=== PATIENT | male | born 1990 | race Hispanic/Latino ===

== ENCOUNTER 2025-02-14 23:16 | Emergency (ER) | payer OTHER, SELFPAY ==
[2025-02-15] MEDS ORDERED: NA CHLORIDE 0.9% 1,000 ML ONE (00:40)
[2025-02-15 00:54] LABS: Urine Microscopic Reflex YN NO UMIC
[2025-02-15 00:56] LABS: Absolute Lymphocytes (CBC) 1.2 K/uL (0.7-4.9); Hematocrit 43.9 % (39.6-49.0); Hemoglobin 15.0 g/dL (13.6-17.9); MCH 30.3 pg (27.0-35.0); MCHC 34.1 g/dL (32.0-36.0); MCV 89.1 fL (80-100); MPV 12.0 fL (7.6-11.3); Nucleated RBC Absolute Count 0.0 (0-0); Nucleated Red Blood Cells % 0.0 % (0-0); RBC Red Blood Cell Count 4.93 M/uL (4.33-5.43); White Blood Count 8.30 thou/uL (4.3-10.9)
[2025-02-15 01:13] LABS: PT Prothrombin Time 13.0 SECONDS (10-13.0); Protime INR 1.16
[2025-02-15 01:26] LABS: ALT/SGPT 23.0 U/L (16-61); AST/SGOT 17.0 U/L (15-37); Albumin 4.0 g/dL (3.4-5.0); Albumin/Globulin Ratio 0.9 (1.1-1.8); Alkaline Phosphatase 59.0 U/L (45-117); Anion Gap 8.5 mEq/L (5.0-15.0); BUN Blood Urea Nitrogen 11.0 mg/dL (7-18); Bilirubin Indirect, Calculated 0.4 mg/dL (0.2-0.8); Globulin 4.3 g/dL (2.3-3.5); Glucose Level 110.0 mg/dL (74-106); Magnesium 2.2 mg/dL (1.6-2.4); Potassium 3.5 mEq/L (3.5-5.1); Troponin High Sensitivity 3.6 pg/mL (<58.9)
[2025-02-15 01:33] LABS: METHAMPHETAM NEGATIVE (NEGATIVE); THC Cannibis NEGATIVE (NEGATIVE)
--- NOTE | 2025-02-15 03:24 | ER ---
Nurse's Notes [facility] Name: Cory Cohen Age: 35 yrs Sex: Male : 1990 Arrival Date: 02/14/2025 Time: 23:16 Bed 17 Private MD: Diagnosis: Encounter for examination and observation for other specified reasons;Acute ethmoidal sinusitis, unspecified Presentation: 02/14 23:22 Chief complaint: Parent and/or Guardian states: HAS BEEN HAVING PERIODS OF NOT KNOWING ha WHERE HE IS AT. GOT LOST MULTIPLE TIMES SINCE LAST WEEK. ACTING CONFUSED. WAS RECENTLY DIAGNOSED WITH LEUKEMIA. 23:22 Coronavirus screen: Client denies travel out of the [place] in the last 14 days. Ebola ha1 Screen: No symptoms or risks identified at this time. Initial Sepsis Screen: Does the patient meet any 2 criteria? No. Patient's initial sepsis screen is negative. Does the patient have a suspected source of infection? No. Patient's initial sepsis screen is negative. Risk Assessment: Do you want to hurt yourself or someone else? Patient reports no desire to harm self or others. Onset of symptoms was February 14, 2025. 23:22 Method Of Arrival: Ambulatory ha1 23:22 Acuity: PATRICK 2 ha1 Triage Assessment: 23:35 General: Appears ill, unkempt, Behavior is calm. Pain: Denies pain. Neuro: Level of ha1 Consciousness is awake, Oriented to person, place, time, situation. Cardiovascular: Capillary refill < 3 seconds Patient's skin is warm and dry. Respiratory: Airway is patent Respiratory effort is even, unlabored, Respiratory pattern is regular, symmetrical. Historical: - Allergies: 23:46 Bactrim; ha1 - PMHx: 23:46 Hypertension; Leukemia; ha1 - Immunization history:: Adult Immunizations up to date. - Infectious Disease History:: Denies. - Social history:: Smoking status: Patient denies any tobacco usage or history of. Screenin/05 00:57 [facility] ED Fall Risk Assessment (Adult) History of falling in the last 3 months, rg5 including since admission No falls in past 3 months (0 pts) Confusion or Disorientation Yes (5 pts) Intoxicated or Sedated Impaired Gait No (0 pts) Mobility Assist Device Used No (0 pt) Altered Elimination No (0 pt) Score/Fall Risk Level 0 - 2 = Low Risk Oriented to surroundings, Maintained a safe environment, Provided non-skid footwear. Abuse screen: Denies threats or abuse. Nutritional screening: No deficits noted. Tuberculosis screening: No symptoms or risk factors identified. Assessment: 00:57 General: Appears in no apparent distress. comfortable, Behavior is calm, cooperative, rg5 appropriate for age. Pain: Denies pain. Neuro: Level of Consciousness is awake, alert, obeys commands. Cardiovascular: Denies chest pain. Respiratory: Airway is patent Respiratory effort is even, unlabored. GI: Abdomen is round non-distended. : No signs and/or symptoms were reported regarding the genitourinary system. EENT: No signs and/or symptoms were reported regarding the EENT system. Derm: Skin is intact, Skin is dry, Skin is normal. Musculoskeletal: Circulation, motion, and sensation intact. Range of motion: intact in all extremities. 01:37 Reassessment: No changes from previously documented assessment. Patient and/or family rg5 updated on plan of care and expected duration. Pain level reassessed. Patient is alert, oriented x 3, equal unlabored respirations, skin warm/dry/pink. 03:39 Reassessment: Patient and/or family updated on plan of care and expected duration. Pain ha1 level reassessed. Vital Signs: 02/14 23:22 BP 131 / 91; Pulse 102; Resp 19 S; Temp 98.9; Pulse Ox 98% on R/A; Weight 83.91 kg; ha1 Height 5 ft. 9 in. ; 02/15 00:56 BP 141 / 97; Pulse 100; Resp 18; Pulse Ox 97% ; Pain 0/10; rg5 01:36 BP 130 / 92; Pulse 88; Resp 18; Pulse Ox 97% ; Pain 0/10; rg5 03:27 BP 119 / 78; Pulse 82; Resp 18; Pulse Ox 97% ; oe 02/14 23:22 Body Mass Index 27.32 (83.91 kg, 175.26 cm) ha1 02/15 00:56 Pain Scale: Adult rg5 01:36 Pain Scale: Adult rg5 ED Course: 02/14 23:19 Patient arrived in ED. im 23:22 Dylan Kay PA-C is PHCP. cp 23:22 Dutch Novoa MD is Attending Physician. cp 23:46 Triage completed. ha1 02/15 00:44 Byron Power, RN is Primary Nurse. rg5 00:54 CT Head Brain wo Cont In Process Unspecified. EDMS 00:57 Patient has correct armband on for positive identification. Bed in low position. Call rg5 light in reach. Side rails up X 1. Adult w/ patient. 00:57 No provider procedures requiring assistance completed. Inserted saline lock: 20 gauge rg5 in right antecubital area, using aseptic technique. Blood collected. Flushed with 10 mL NS. Patient maintains SpO2 saturation greater than 95% on room air. 00:59 XRAY Chest (1 view) In Process Unspecified. EDMS 03:22 Adrian Rodriguez MD is Referral Physician. cp 03:40 Provided Education on: follow ups . ha1 03:40 IV discontinued, intact, bleeding controlled, No redness/swelling at site. Pressure ha1 dressing applied. Administered Medications: 00:51 Drug: NS 0.9% IV 1000 ml IV at 1000 ml once; to be given as a bolus over 60 minutes rg5 Route: IV; Rate: 1000 ml; Site: right antecubital; 03:41 Follow up: Response: No adverse reaction; IV Status: Completed infusion ha1 Medication: 00:57 VIS not applicable for this client. rg5 Outcome: 03:23 Discharge ordered by . cp 03:40 Discharged to home ambulatory, with family, ha1 03:40 Condition: stable 03:40 Discharge instructions given to patient, Instructed on discharge instructions, follow up and referral plans. medication usage, Demonstrated understanding of instructions, follow-up care, medications, Prescriptions given X 1, 03:41 Patient left the ED. ha1 Signatures: Dispatcher [employer] EDVT Dylan Kay PA-C PA-C cp Espinosa, Orlando oe Ayala, Heidy, RN RN ha1 Moni Romero Rommel, RN RN rg5
--- NOTE | 2025-02-15 03:24 | EDPHYS ---
Physician Documentation [facility] Name: Cory Cohen Age: 35 yrs Sex: Male : 1990 Arrival Date: 02/14/2025 Time: 23:16 Bed 17 Private MD: ED Physician Dutch Novoa HPI: 02/15 00:30 This 35 yrs old Male presents to ER via Ambulatory with complaints of Mental cp health eval. 00:30 The patient presents to the emergency department with depression, over health due to cp recent diagnosis of Leukemia. 00:30 Onset: The symptoms/episode began/occurred gradually. Past psychiatric history: Prior cp diagnosis: no previous psychiatric diagnosis known. Parents concerned about patient recent lack of interest and wondering off. Historical: - Allergies: 02/14 23:46 Bactrim; ha1 - PMHx: 23:46 Hypertension; Leukemia; ha1 - Immunization history:: Adult Immunizations up to date. - Infectious Disease History:: Denies. - Social history:: Smoking status: Patient denies any tobacco usage or history of. ROS: 02/15 00:33 Constitutional: Negative for body aches, chills, fever, poor PO intake, cp 00:33 Cardiovascular: Negative for chest pain, edema, palpitations, cp 00:33 Respiratory: Negative for cough, shortness of breath, wheezing, 00:33 Abdomen/GI: Negative for abdominal pain, vomiting, diarrhea, constipation, 00:33 Neuro: Negative for dizziness, headache, seizure activity, speech changes, weakness, 00:33 Psych: Positive for depression, Negative for auditory hallucinations, visual hallucinations, homicidal ideation, suicide gesture, suicidal ideation, 00:33 All other systems are negative, Exam: 00:35 Constitutional: The patient appears in no acute distress, alert, awake, cp non-diaphoretic, non-toxic, well developed, well nourished, 00:35 Head/Face: Normocephalic, atraumatic. cp 00:35 Eyes: Periorbital structures: appear normal, Pupils: equal, round, and reactive to light and accomodation, Extraocular movements: intact throughout, Conjunctiva: normal, no exudate, no injection, Lids and lashes: appear normal, bilaterally, 00:35 ENT: External ear(s): are unremarkable, Nose: is normal, Mouth: Lips: moist, Oral mucosa: moist, Posterior pharynx: Airway: no evidence of obstruction, patent, 00:35 Neck: ROM/movement: is normal, is supple, without pain, no range of motions limitations, 00:35 Chest/axilla: Inspection: normal, 00:35 Cardiovascular: Rate: tachycardic, Rhythm: regular, 00:35 Respiratory: the patient does not display signs of respiratory distress, Respirations: normal, no use of accessory muscles, no retractions, labored breathing, is not present, Breath sounds: are clear throughout, no decreased breath sounds, no stridor, no wheezing, 00:35 Abdomen/GI: Inspection: abdomen appears normal, Palpation: abdomen is soft and non-tender, in all quadrants, 00:35 Back: pain, is absent, ROM is normal, 00:35 Neuro: Orientation: to person, place, situation, Mentation: able to follow commands, Motor: moves all fours, strength is normal, Sensation: is normal, 01:35 ECG was reviewed by the Attending Physician. Vital Signs: 02/14 23:22 BP 131 / 91; Pulse 102; Resp 19 S; Temp 98.9; Pulse Ox 98% on R/A; Weight 83.91 kg; ha1 Height 5 ft. 9 in. ; 02/15 00:56 BP 141 / 97; Pulse 100; Resp 18; Pulse Ox 97% ; Pain 0/10; rg5 01:36 BP 130 / 92; Pulse 88; Resp 18; Pulse Ox 97% ; Pain 0/10; rg5 03:27 BP 119 / 78; Pulse 82; Resp 18; Pulse Ox 97% ; oe 02/14 23:22 Body Mass Index 27.32 (83.91 kg, 175.26 cm) ha1 02/15 00:56 Pain Scale: Adult rg5 01:36 Pain Scale: Adult rg5 MDM: 02/14 23:37 Medical Screening Exam initiated 02/15 01:00 Differential diagnosis: drug withdrawal. acute psychotic break, depression, psychosis cp secondary to non-compliance. 03:22 Data reviewed: vital signs, nurses notes, lab test result(s), EKG, radiologic studies, cp CT scan, and as a result, I will discharge patient. 03:22 I considered the following discharge prescriptions or medication management in the emergency department Medications were administered in the Emergency Department. See 03:22 Independent interpretation of the following test(s) in the Emergency Department EKG: cp See my EKG interpretation above. Counseling: I had a detailed discussion with the patient and/or guardian regarding the historical points, exam findings, and any diagnostic results supporting the discharge/admit diagnosis, lab results, radiology results, the need for outpatient follow up, a psychiatrist, to return to the emergency department if symptoms worsen or persist or if there are any questions or concerns that arise at home. 02/15 00:24 Order name: UA Rfx Pepito Cult if indicated; Complete Time: 02:24 cp 02/15 00:24 Order name: UDS; Complete Time: 02:24 cp 02/15 00:24 Order name: Basic Metabolic Panel; Complete Time: 02:24 cp 02/15 02:24 Interpretation: Normal except: GLUC 110; GFR 88; CA 8.3. cp 02/15 00:24 Order name: CBC with Diff; Complete Time: 02:24 cp 02/15 02:24 Interpretation: Normal except: PLT 123; MPV 12.0; MUKUND% 78.6; LYM% 14.4. cp 02/15 00:24 Order name: LFT's; Complete Time: 02:24 cp 02/15 02:24 Interpretation: Normal except: TP 8.3; GLOB 4.3; A/G 0.9. cp 02/15 00:24 Order name: Magnesium; Complete Time: 02:24 cp 02/15 00:24 Order name: PT-INR; Complete Time: 02:24 cp 02/15 00:24 Order name: Troponin HS; Complete Time: 02:24 cp 02/15 00:24 Order name: ETOH Level; Complete Time: 02:24 cp 02/15 00:24 Order name: CT Head Brain wo Cont cp 02/15 00:24 Order name: XRAY Chest (1 view) cp 02/15 00:24 Order name: Cardiac monitoring; Complete Time: :36 cp 02/15 00:24 Order name: EKG - Nurse/Tech; Complete Time: 01:28 cp 02/15 00:24 Order name: IV Saline Lock; Complete Time: :36 cp 02/15 00:24 Order name: Labs collected and sent; Complete Time: :36 cp 02/15 00:24 Order name: O2 Per Protocol; Complete Time: 01:36 cp 02/15 00:24 Order name: O2 Sat Monitoring; Complete Time: :36 cp EC:35 Rate is 84 beats/min. Rhythm is regular. PA interval is normal. QRS interval is normal. cp QT interval is normal. T waves are Inverted in lead aVR. Interpreted by me. Reviewed by me. Administered Medications: 00:51 Drug: NS 0.9% IV 1000 ml IV at 1000 ml once; to be given as a bolus over 60 minutes rg5 Route: IV; Rate: 1000 ml; Site: right antecubital; 03:41 Follow up: Response: No adverse reaction; IV Status: Completed infusion ha1 Disposition: 19:14 Co-signature as Attending Physician, Dutch Novoa MD I agree with the assessment sp4 and plan of care. I reviewed the patient's care provided by the Advanced Practice Provider and agree with the diagnosis and treatment plan. 02/16 01:54 Chart complete. cp Disposition Summary: 02/15/25 03:23 Discharge Ordered Notes: Location: Home cp Problem: new cp Symptoms: have improved cp Condition: Stable cp Diagnosis - Encounter for examination and observation for other specified reasons cp - Acute ethmoidal sinusitis, unspecified cp Followup: cp - With: Adrian Rodriguez MD - When: 2 - 3 days - Reason: Recheck today's complaints Discharge Instructions: - Discharge Summary Sheet cp - Sinusitis, Adult cp - Depression Screening cp - Caring for Your Mental Health cp Forms: - Medication Reconciliation Form cp - Antibiotic Education cp - Prescription Opioid Use cp - Patient Portal Instructions cp - Leadership Thank You Letter cp Prescriptions: - Augmentin 875-125 mg Oral Tablet - take 1 tablet ORAL route every 12 hours for 10 days; 20 tablet; Refills: 0, cp Product Selection Permitted Signatures: Dispatcher [employer] EDMS Dylan Kay PA-C PA-C cp Kelli Blackwell RN RN ha1 Dutch Novoa MD MD sp4 Byron Power RN RN rg5 Corrections: (The following items were deleted from the chart) 02/15 00:25 00:25 UA Rfx Pepito Cult if indicated+U.LAB.BRZ ordered. EDMS EDMS 00:25 00:25 URINE DRUG SCREEN+UC.LAB.BRZ ordered. EDMS EDMS 00:25 00:25 BASIC METABOLIC PANEL+C.LAB.BRZ ordered. EDMS EDMS 00:25 00:25 CBC+H.LAB.BRZ ordered. EDMS EDMS 00:25 00:25 HEPATIC FUNCTION+C.LAB.BRZ ordered. EDMS EDMS 00:25 00:25 MAGNESIUM+C.LAB.BRZ ordered. EDMS EDMS 00:25 00:25 PROTIME (+INR)+COAG.LAB.BRZ ordered. EDMS EDMS 00:25 00:25 Troponin High Sensitivity+C.LAB.BRZ ordered. EDMS EDMS 00:25 00:25 ETHANOL+C.LAB.BRZ ordered. EDMS EDMS 00:25 00:25 Chest Single View+RAD.RAD.BRZ ordered. EDMS EDMS
[2025-02-15 03:58] VITALS: TEMP 98.9
[2025-02-15 03:59] VITALS: O2SAT 97
[2025-02-15 04:02] VITALS: BP 119/78
--- NOTE | 2025-02-15 05:20 | RAD REPORT ---
EXAM: CT Head Without Intravenous Contrast CLINICAL HISTORY: The patient is 35 years old and is Male; Mental status change. TECHNIQUE: Axial computed tomography images of the head/brain without intravenous contrast. Sagittal and cor onal reformatted images were created and reviewed. This CT exam was performed using one or more of the following dose reduction techniques: automated exposure control, adjustment of the mA and/or kV according to patient size, and/or use of iterative reconstruction technique. COMPARISON: No relevant prior studies available. FINDINGS: BRAIN: Unremarkable. No hemorrhage. No significant white matter disease. No edema. VENTRICLES: Unremarkable. No ventriculomegaly. BONES/JOINTS: Incomplete fusion of C1 is likely developmental. No acute fracture. SOFT TISSUES: Unremarkable. SINUSES: Mild mucosal thickening in the ethmoid sinuses. MASTOID AIR CELLS: Partial opacification of bilateral mastoid air cells. NASAL CAVITY/SEPTUM: Mucosal thickening of the middle nasal turbinates. IMPRESSION: 1. No acute intracranial findings. Consider MRI if symptoms persist. 2. Partial opacification of bilateral mastoid air cells. This may be incidental or due to mastoidit is. Electronically signed by: Nura Sanabria MD 02/15/2025 01:17 AM CDT Due to temporary technical issues with the PACS/[employer] reporting system, reports are being jesus d by the in-house radiologist without review as a courtesy to ensure prompt reporting the interpreting radiologist is fully responsible for the content of the report. Transcribed Date/Time: 02/15/2025 5:20 AM
--- NOTE | 2025-02-15 12:16 | RAD REPORT ---
EXAM: Chest Single View HISTORY: 35 years Male AMS COMPARISON: 12/14/2024 FINDINGS: LUNGS/PLEURA: The lungs are clear. No pleural effusions or pneumothorax. No pulmonary edema. CARDIAC/MEDIASTINUM: The cardiac silhouette is within normal limits. UPPER ABDOMEN: No significant abnormality. BONES: No acute abnormality. LINES/TUBES/OTHER: N/A IMPRESSION: No evidence of acute cardiopulmonary disease.
== END 2025-02-15 03:41 | disposition home or self-care (01) ==
LOC: ER 23:16
DX: F32.A Depression, unspecified (principal); J01.20 Acute ethmoidal sinusitis, unspecified
CPT/HCPCS: 96361; 93005; 85025; 80048; 36415; 83735; 85610; 82947; 80076; 81003; 84484; 80307; 70450; 71045; 96360; 99284; 82077; J7030